=== PATIENT | female | born 1985 | race Asian ===

== ENCOUNTER 2023-03-21 17:00 | Inpatient (IN) ==
[2023-03-21] MEDS ORDERED: Promethazine INJ(RESTRICTED) 25 MG/ML 1 ml VIAL IV PRN (17:44)
[2023-03-21] MEDS ORDERED: Nalbuphine 10 MG/ML 1 ML VIAL IV PRN (17:44)
[2023-03-21] MEDS ORDERED: Lactated Ringers 1000 ml BAG 1,000 ML IV ONE ×2 (17:44→20:05)
[2023-03-21] MEDS ORDERED: Buffered Lidocaine 1% SYRIN 1 ml INTRADERM ONE (17:44)
[2023-03-21] MEDS ORDERED: Oxytocin in LR 20,000 MILLI.UNIT/1,000 ML BAG IV SCH ×2 (17:45→21:50)
[2023-03-21] MEDS ORDERED: Lactated Ringers 1000 ml BAG 1,000 ML IV SCH ×3 (18:00→22:00)
[2023-03-21] MEDS ORDERED: OBEPIDURAL (200 ML) 200 ML EPIDURAL ONE (18:35)
[2023-03-21] MEDS ORDERED: Lidocaine 1% w EPI 1:200,000 SDV 30 ML VIAL ONE (18:35)
[2023-03-21 18:41] LABS: ABS Lymphocytes 1.1 10^3/uL (1.0-4.8); ABS Monocytes 0.3 10^3/uL (0.0-0.9); ABS Neutrophils 4.8 10^3/uL (1.5-7.6); Eosinophil % 0.2 %; Hematocrit 41.6 % (35-45); Hemoglobin 14.7 g/dL (11.5-14.3); Lymphocyte % 17.1 %; Mean Corpuscular Hemoglobin 31.9 pg (27-33); Mean Corpuscular Hgb Conc 35.3 g/dL (31-36); Mean Corpuscular Volume 90.3 fL (80-97); Mean Platelet Volume 11.2 fL (7.5-11.2); Platelet Count 127 10^3/uL (150-450); Red Cell Distribution Width 14.5 % (12-17); White Blood Count 6.2 10^3/uL (3.8-11.8)
[2023-03-21] MEDS ORDERED: Lactated Ringers 1000 ml BAG 500 ML IV PRN ×2 (20:05)
[2023-03-21] MEDS ORDERED: Sodium Citrate/Citric Acid LIQ 15 ML UDC PO PRN (20:05)
[2023-03-21] MEDS ORDERED: Phenylephrine 40 mcg/mL 10mL (400mcg) SYRINGE IV PUSH PRN ×2 (20:05)
[2023-03-21] MEDS ORDERED: OBEPIDURAL (200 ML) 200 ML EPIDURAL SCH (21:00)
[2023-03-21] MEDS ORDERED: Glycerin ADULT 2.4 gm SUPP PR PRN (21:47)
[2023-03-21] MEDS ORDERED: Dibucaine 1% OINT 28.35 GM TUBE PR PRN (21:47)
[2023-03-21] MEDS ORDERED: Witch Hazel PAD JAR TOPICAL PRN (21:47)
[2023-03-22 07:15] LABS: Hematocrit 32.2 % (35-45); Hemoglobin 11.6 g/dL (11.5-14.3); Mean Corpuscular Hemoglobin 32.6 pg (27-33); Mean Corpuscular Volume 90.8 fL (80-97); Red Blood Count 3.55 10^6/uL (3.63-4.92); Red Cell Distribution Width 14.4 % (12-17); White Blood Count 7.9 10^3/uL (3.8-11.8)
[2023-03-22 07:48] LABS: Urine Appearance Clear; Urine Bilirubin Negative (Negative); Urine Blood 1+ (Negative); Urine Color Straw; Urine Glucose Negative (Negative); Urine Ketones 1+ (Negative); Urine Nitrite Negative (Negative); Urine Protein Negative (Negative); Urine Specific Gravity 1.008 (1.002-1.030); Urine Urobilinogen Negative (Negative)
[2023-03-22 07:54] LABS: Urine Bacteria Absent (Absent); Urine Red Blood Cell Trace(0-2/hpf) (Absent); Urine White Blood Cell Trace(0-5/hpf) (Absent)
[2023-03-22 08:04] LABS: Urine Benzodiazepine Screen None Detected (None Detect); Urine Cannabinoids Screen None Detected (None Detect); Urine Opiates Screen None Detected (None Detect)
[2023-03-22 09:58] LABS: ABS Lymphocytes 1.2 10^3/uL (1.0-4.8); ABS Monocytes 0.5 10^3/uL (0.0-0.9); ABS Neutrophils 6.2 10^3/uL (1.5-7.6); ABS Nucleated RBC 0.01 10^3/ul; Eosinophil % 0.1 %; Lymphocyte % 15.4 %; Mean Platelet Volume 10.6 fL (7.5-11.2); Nucleated Red Blood Cells % 0.1 /100 WBC (0.0-0.4); Platelet Count 91 10^3/uL (150-450)
[2023-03-23 07:49] VITALS: BP 111/78
== END 2023-03-23 11:34 | disposition home or self-care (01) | DRG 560 ==
LOC: MCHOBOUT 17:00 → MCHOB 17:27
PROVIDERS: ADMIT Obstetrics & Gynecology; ATTEND Obstetrics & Gynecology